=== PATIENT | female | born 1960 | race Caucasian/White ===

== ENCOUNTER 2019-05-11 01:25 | Emergency (ER) | payer OTHER ==
[~2019-05-11] VITALS: Ht 175.3 cm; Wt 68.0 kg
--- NOTE | 2019-05-11 02:06 | NUR ---
GAVE PT WARM COMPRESS TO LOW BACK SHE AWAITS
[2019-05-11] MEDS ORDERED: methylPREDNISolone sod succ 125mg/2ml vial IM ONE (03:10)
--- NOTE | 2019-05-11 03:19 | NUR ---
PT TO CT VIA BECKY
--- NOTE | 2019-05-11 03:28 | NUR ---
PT BACK FROM CT
--- NOTE | 2019-05-11 03:40 | NUR ---
PLAN OF CARE UPDATED . PT GIVEN ANOTHER WARM MOIST COMPRESS TO APPLY TO THE LOWER BACK
--- NOTE | 2019-05-11 04:30 | NUR ---
dr solomon to see patient
[2019-05-11] MEDS ORDERED: PRED20TA PO (04:32)
[2019-05-11 04:40] VITALS: BP 125/81
== END 2019-05-11 04:37 | disposition home or self-care (01) ==
LOC: ER 01:25
DX: M51.36 Other intervertebral disc degeneration, lumbar region (principal); R20.0 Anesthesia of skin; G89.29 Other chronic pain; Z88.0 Allergy status to penicillin
CPT/HCPCS: 72131; 96372; 99284; J2930

== ENCOUNTER 2021-01-17 17:34 | Emergency (ER) | payer OTHER ==
[~2021-01-17] VITALS: Ht 175.3 cm; Wt 70.5 kg
[2021-01-17 18:14] VITALS: BP 156/100
== END 2021-01-17 20:52 | disposition home or self-care (01) ==
LOC: ER 17:35
DX: S09.90XA Unspecified injury of head, initial encounter (principal); G89.29 Other chronic pain; E05.00 Thyrotoxicosis with diffuse goiter without thyrotoxic crisis or storm; Z88.0 Allergy status to penicillin; W22.8XXA Striking against or struck by other objects, initial encounter; Y93.89 Activity, other specified; Y92.89 Other specified places as the place of occurrence of the external cause; Y99.8 Other external cause status
CPT/HCPCS: 70450; 72125; 99285